=== PATIENT | female | born 2005 | race Caucasian/White ===

== ENCOUNTER 2025-08-30 19:59 | Emergency (ER) | payer OTHER, SELFPAY ==
[2025-08-30 20:00] VITALS: BP 112/81; PULSE 86; RESP 19; TEMP 35.9; O2SAT 98
--- NOTE | 2025-08-30 20:03 | ECG_ITS ---
Test Date: 2025-08-30 20:10:14 Measurements Intervals [place] Rate: 84 P: 36 [place]: 186 QRS: 1 QRSD: 78 T: 20 QT: 332 QTc: 394 Interpretive Statements SINUS RHYTHM BORDERLINE R WAVE PROGRESSION, ANTERIOR LEADS BORDERLINE ECG No previous ECG available for comparison Electronically Signed On 08-30-2025 20:13:00 HVAC PROJECT MANAGER by José Miguel Garcia D.O.
--- NOTE | 2025-08-30 20:04 | ED.ARRPALP ---
HPI - Arrhythmia/Palpitations General Chief Complaint: Unspecified Stated Complaint: check HR Time Seen by Provider: 08/30/25 20:03 Source: patient Mode of arrival: ambulatory Limitations: no limitations History of Present Illness HPI narrative: This is a 19-year-old female currently on vitamins checked her heart rate and she claims it was 110 with no sensation of palpitations, with no chest pain no shortness of breath no abdominal pain no fever chills no nasal congestion or drainage. MD complaint: rapid heart beat Onset (ago): minute(s) Duration: now resolved Severity: mild Context: other Associated symptoms: denies other symptoms Related Data Home Medications ?Medication ?Instructions ?Recorded ?Confirmed ?Last Taken ?Type No Home Medications 08/30/25 08/30/25 Unknown History Allergies Allergy/AdvReac Type Severity Reaction Status Date / Time No Known Allergies Allergy Verified 08/30/25 20:41 Review of Systems Review of Systems: All systems reviewed & are unremarkable except as noted in HPI and below Exam Const: General: healthy appearing and no acute distress Nutritional Appearance: well nourished Orientation/consciousness: patient oriented x3 Limitations: no limitations Eyes: Conjunctivae: conjunctivae normal Pupils: Equal, round and reactive pupils present Neck: Neck: normal visual inspection and no lymphadenopathy Chest: Chest palpation & inspection: normal inspection of the chest Resp: Effort & Inspection: normal respiratory effort Auscultation: clear to auscultation bilaterally Cardio: Rate: regular rate Rhythm: regular rhythm GI: GI Palp: Yes Soft to palpation Auscultation: normal bowel sounds Skin: General skin exam: normal color Neuro: General: patient oriented x3, moves all extremities and no meningeal signs Psych: Mental Status: mental status grossly normal Course Course Emergency Course: Medical decision making narrative: The patient was evaluated by myself in the emergency department. History obtained from the patient who is an independent historian physical exam performed and witnessed by nurse. EKG performed shows normal sinus rhythm with some blood pressure currently of 118/79 patient asymptomatic with no chest pain or palpitations no fever chills. Repeat assessment: Patient doing well on repeat exam with no acute distress Symptoms improved since her to the emergency department. New 9 Repeat vitals are stable Patient agrees with discussion after shared medical decision-making and agrees with discharge All questions answered to the patient's satisfaction Follow-up with primary care physician within next 3 to 5 days further evaluation and treatment. Vital Signs Vital signs: Vital Signs Temperature 35.9 C L 08/30/25 20:00 Pulse Rate 86 08/30/25 20:00 Respiratory Rate 19 08/30/25 20:00 Blood Pressure 112/81 08/30/25 20:00 Pulse Oximetry 98 08/30/25 20:00 Oxygen Delivery Room Air 08/30/25 20:00 Temperature 35.9 C L 08/30/25 20:00 Pulse Rate 86 08/30/25 20:53 Respiratory Rate 18 08/30/25 20:41 Blood Pressure 103/76 08/30/25 20:53 Pulse Oximetry 97 08/30/25 20:53 Oxygen Delivery Room Air 08/30/25 20:53 MDM Differential Diagnosis Differential Diagnosis: Palpitations Critical Care Time Critical Care Time Critical Care Time: No Discharge Plan Discharge Clinical Impression: Tachycardia Patient Disposition: Home Condition: Stable Instructions: Antibiotic Form, Tachycardia (ED) Additional Instructions: Advised to follow with primary care physician within next 3 to 5 days further evaluation treatment. Patient Language: [place] Island[place] Prescriptions: No Action No Home Medications Follow-up/Referrals: Evelio Harrell MD [Physician, Internal Medicine] Time of Disposition: 20:13
--- OUTSIDE RECORDS SUMMARY | 2025-08-30 20:25 | XMS_ITS ---
Author Organization Unknown Address [address] [place] [address] [phone] Phone Care Team Providers Care Ground Equipment Mechanic Name Role Phone ALEXIS DANIELS Attending Unavailable NAVIN Lowe Primary Unavailable Immunization Immunization Date Status Additional Notes Code Code System MMR 10/19/2004 Completed 03 CVX Hep B, adolescent or pediatric 2003 Completed 08 CVX Hep B, adolescent or pediatric 2003 Completed 08 CVX Hep B, adolescent or pediatric 04/18/2004 Completed 08 CVX IPV 2003 Completed 10 CVX IPV 02/15/2004 Completed 10 CVX IPV 04/18/2004 Completed 10 CVX Hib, unspecified formulation 2003 Completed 17 CVX Hib, unspecified formulation 02/15/2004 Completed 17 CVX Hib, unspecified formulation 04/18/2004 Completed 17 CVX DTaP 2003 Completed 20 CVX DTaP 02/15/2004 Completed 20 CVX DTaP 04/18/2004 Completed 20 CVX DTaP 01/18/2005 Completed 20 CVX varicella 10/19/2004 Completed 21 CVX HPV, quadrivalent 04/20/2015 Completed 62 C VX HPV, quadrivalent 06/23/2015 Completed 62 C VX Hep A, ped/adol, 2 dose 04/20/2015 Completed 83 CVX pneumococcal conjugate PCV 7 02/15/2004 Completed 100 CVX pneumococcal conjugate PCV 7 10/19/2004 Completed 100 CVX pneumococcal conjugate PCV 7 01/18/2005 Completed 100 CVX meningococcal MCV4P 04/20/2015 Completed 114 CVX Tdap 04/20/2015 Completed 115 CVX Social History Type Status Start Date End Date Code Code Syst em Smoking History Never smoker (Never Smoked) [id number] SNOMED CT Sex Female Hospital Discharge Instructions Should you have any questions prior to discharge, please contact a member of your healthcare team. If you have left the hospital and have any questions, please contact your primary care physician. Reason For Referral No Data Found Plan of Treatment No Data Found Encounters Encounter Diagnosis Start Date Code Code Sys tem Acute pharyngitis, unspecified 06/22/2024 SNOMED-CT Personal Care Team Section
--- OUTSIDE RECORDS SUMMARY | 2025-08-30 20:26 | XMS_ITS ---
Author Organization Unknown Address [address] [place] [address] [phone] Phone Care Team Providers Care Powertrain Control Systems Engineer Name Role Phone CASSIE PATE Attending Unavailable NAVIN Lowe Primary Unavailable Immunization [...] em Smoking History Never smoker (Never Smoked) [id number] SNOMED CT Sex Female Hospital Discharge Instructions Should you have any questions prior to discharge, please contact a member of your healthcare team. If you have left the hospital and have any questions, please contact your primary care physician. Reason For Referral No Data Found Plan of Treatment No Data Found Encounters Encounter Diagnosis Start Date Code Code Sys tem Acute pharyngitis, unspecified 06/24/2024 SNOMED-CT Personal Care Team Section
--- OUTSIDE RECORDS SUMMARY | 2025-08-30 20:26 | XMS_ITS | Clinical Summary ---
Author Organization [facility] Address [address] [place] [id number] Care Team Providers Care Motor Builder Winder Name Role Phone Chester Grijalva DO Primary Care Provider Allergies No known active allergies Medications ondansetron (ZOFRAN-ODT) 4 MG disintegrating tablet Take 1 tablet (4 mg total) by mouth every 8 (eight) hours as needed for Nausea. 20 tablet Active Active Problems Comments Yes No known active problems Encounters Date Type Department Care Team Description 08/03/2025 3:50 PM [facility] - 08/03/2025 11:59 PM [facility] Hospital Encounter [facility] [address] [place] [address] Staci Eric MD Discharge Disposition: Home or Self Care (Routine Discharge) 08/03/2025 Orders Only [facility] [address] [place] [address] Staci Eric MD 07/19/2025 Orders Only [facility] [address] [place] [address] Bro Xie MD from Last 3 Months Social History Tobacco Use Types Packs/Day Years Used Date Smoking Tobacco: Never Smokeless Tobacco: Current Tobacco Cessation:Ready to Q uit: Not Asked; Counseling Given: Not Answered Comments Yes Sex and Gender Information Value Date Recorded Sex Assigned at Not on file Legal Sex Female 11:23 PM [facility] Gender Identity Not on file Sexual Orientation Not on file Last Filed Vital Signs Vital Sign Reading Time Taken Comments Blood Pressure 135/72 02/20/2025 3:40 AM CDT Pulse 62 02/20/2025 1:41 AM CDT Temperature 35.8 C (96.5 F) 02/20/2025 1:41 AM CDT Respiratory Rate 20 02/20/2025 1:41 AM CDT Oxygen Saturation 100% 02/20/2025 3:40 AM CDT Inhaled Oxygen Concentration - - Weight 97 kg (213 lb 12.8 oz) 02/20/2025 1:41 AM CDT Height 175.3 cm (5' 9) 02/20/2025 1:41 AM CDT Body Mass Index 31.57 02/20/2025 1:41 AM CDT Plan of Treatment Health Maintenance Due Date Last Done Comments Cervical Cancer Screening Pap Smear (Age 21 to 29) Every 3 Years 2003 Cervical Cancer Screening 2003 Annual Physical 2006 HPV Vaccines (3 - 2-dose series) 10/21/2015 06/23/2015, 04/20/2015 Hepatitis A Vaccines (2 of 2 - 2-dose series) 10/21/2015 04/20/2015 Chlamydia Screening Females ages 16-24 2019 Meningococcal B Vaccine (1 of 2 - Standard) 2019 Hepatitis C 2021 DTaP, Tdap and Td Vaccines (6 - Td or Tdap) 04/20/2025 04/20/2015, 01/18/2005, 04/18/2004, Additional history exists COVID-19 Vaccine ( season) 2025 Influenza Adult (#1) 2025 RSV Immunization or 60+ Years (1 - 1-dose 75+ series) 2078 Hepatitis B Vaccines Completed 04/18/2004, 2003, 2003 Pneumococcal Vaccine: Pediatrics (0 to 5 Years) and At-Risk Patients (6 to 49 Years) Aged Out 01/18/2005, 10/19/2004, 02/15/2004 No longer eligible based on patient's age to complete this topic Meningococcal Vaccine Aged Out 04/20/2015 No amaury prem eligible based on patient's age to complete this topic RSV Immunizations Under 20 Months Aged Out No longer eligible based on patient's age to complete this topic Procedures Procedure Name Priority Date/Time Associated Diagnosis Comments HIV 1 ANTIGEN(S), WITH HIV-1 AND HIV-2 ANTIBODIES Routine 08/03/2025 1:34 PM [facility] Encounter for supervision of normal , unspecified, unspecified trimester (HHS/HCC) HC CBC W/O DIFF Routine 08/03/2025 1:34 PM [facility] Encounter for supervision of normal , unspecified, unspecified trimester (HHS/HCC) SYPHILIS AB (DIAGNOSTIC) WITH CASCADING REFLEX Routine 08/03/2025 1:34 PM [facility] Encounter for supervision of normal , unspecified, unspecified trimester (HHS/HCC) from Last 3 Months Results * HIV 1 ANTIGEN(S), WITH HIV-1 AND HIV-2 ANTIBODIES (08/03/2025 1:34 PM [facility]) HIV 1/2 AB+ HIV1 P24 AG NON-REACTI VE NON-REACTI VE 08/03/2025 6:27 PM [facility] Comment:HIV 1 p24 Ag and HIV 1/ HIV 2 Ab not detected. 08/03/2025 1:34 PM [facility] us Staci Eric MD LABORATORY Final Res ult [facility] [address] [place] [address], [phone] * (ABNORMAL) CBC, AUTO, NO DIFF (08/03/2025 1:34 PM [facility]) WBC 8.36 4.00 - 10.80 x10'3/uL 08/03/2025 4:10 PM [facility] RBC 3.94(L) 4.10 - 5.40 x10'6/uL 08/03/2025 4:10 PM [facility] HGB 11.9(L) 12.0 - 16.0 G/DL 08/03/2025 4:10 PM [facility] HCT 36.3 36.0 - 47.0 % 08/03/2025 4:10 PM [facility] MCV 92.1 78.0 - 100.0 FL 08/03/2025 4:10 PM [facility] MCH 30.2 27.0 - 31.0 PG 08/03/2025 4:10 PM [facility] MCHC 32.8(L) 33.0 - 36.0 G/DL 08/03/2025 4:10 PM [facility] RDW 12.6 11.5 - 14.5 % 08/03/2025 4:10 PM [facility] PLT 256 150 - 350 x10'3/uL 08/03/2025 4:10 PM [facility] MPV 11.1(H) 7.4 - 10.4 FL 08/03/2025 4:10 PM [facility] 08/03/2025 1:34 PM [facility] us Staci Eric MD LABORATORY Final Res ult Performing Organization Address [facility] Co de Phone Number [facility] [address] [place] [address], [place] [phone] * SYPHILIS AB (DIAGNOSTIC) WITH CASCADING REFLEX (08/03/2025 1:34 PM [facility]) SYPHILIS IGG IGM AB NON-REACTI VE NON-REACTI VE 08/03/2025 6:27 PM [facility] Comment: No serologic evidence of syphilis. No follow-up necessary unless clinically indicated. 08/03/2025 1:34 PM [facility] Staci Eric MD LABORATORY Final Res ult Performing Organization Address [facility]/ZIP Co de Phone Number [facility] [address] [place] [address], [place] [phone] [id number] from Last 3 Months Insurance [facility] Care Teams Motor Builder Winder Relationship Specialty [place] [address] [place] [id number] PCP - General FAMILY PRACTICE 06/26/24
[2025-08-30 20:41] VITALS: BP 103/65; PULSE 89; RESP 18; O2SAT 96
[2025-08-30 20:53] VITALS: BP 103/76; PULSE 86; O2SAT 97
== END 2025-08-30 20:59 | disposition home or self-care (01) ==
PROVIDERS: Emergency Provider Emergency Medicine; Referring Provider Internal Medicine
DX: R00.0 Tachycardia, unspecified (principal)
CPT/HCPCS: 93005; 99283